=== PATIENT | male | born 1975 | race Two or more races ===

== ENCOUNTER 2024-09-06 21:38 | Emergency (ER) | payer OTHER ==
[~2024-09-06] VITALS: Ht 177.8 cm; Wt 79.4 kg
[2024-09-06] MEDS ORDERED: KETOROLAC TROMETHAMINE 60 MG VIAL IM STA (22:07)
[2024-09-06] MEDS ORDERED: 0.9 % SODIUM CHLORIDE 1,000 ML IV STA (22:10)
[2024-09-06] MEDS ORDERED: ACETAMINOPHEN 500 MG GEL..CAP PO STA (22:18)
[2024-09-06] MEDS ORDERED: KETOROLAC TROMETHAMINE 60 MG VIAL IM ONE (22:22)
[2024-09-06] MEDS ORDERED: ACETAMINOPHEN 500 MG GEL..CAP PO ONE (22:22)
[2024-09-06 22:49] LABS: HEMATOCRIT 44.3 % (39.0-48.0); HEMOGLOBIN 15.4 g/dL (13-16.00); MEAN CELL VOLUME 88.9 fL (80.0-100.00); MEAN CORPUSCULAR HGB CONC 34.8 g/dl (32.0-36.0); PLATELET COUNT 171 K/uL (150-450); RED BLOOD COUNT 4.98 M/uL (4.00-6.00); RED CELL DISTRIBUTION WIDTH 12.2 % (11.5-14.5)
[2024-09-06 23:03] LABS: CALCIUM 8.8 mg/dL (8.5-10.1); CREATININE SERUM 1.19 mg/dL (0.70-1.30); GFR 64.97; POTASSIUM 4.19 mEq/L (3.5-5.1)
[2024-09-06] MEDS ORDERED: CEFTRIAXONE SODIUM 2,000 MG VIAL IV STA (23:09)
[2024-09-06] MEDS ORDERED: CEFTRIAXONE SODIUM 2,000 MG VIAL ONE (23:36)
== END 2024-09-07 01:58 | disposition home or self-care (01) ==
LOC: ER 21:41
DX: J32.9 Chronic sinusitis, unspecified (principal); Z20.822 Contact with and (suspected) exposure to COVID-19